=== PATIENT | female | born 1975 | race Caucasian/White ===

== ENCOUNTER → 2024-01-30 13:41 | Outpatient (REF) | payer MEDICARE, OTHER, SELFPAY | LOC: RAD 13:41 | PROVIDERS: ATTENDING PHYSICIAN Physician Assistant Medical | DX: L53.9 Erythematous condition, unspecified (principal) | CPT/HCPCS: 93922; 93925 ==

== ENCOUNTER → 2024-02-02 09:42 | Outpatient (REF) | payer MEDICARE, OTHER, SELFPAY | LOC: WDC 09:42 | PROVIDERS: ATTENDING PHYSICIAN Physician Assistant Medical | DX: N64.4 Mastodynia (principal); N64.52 Nipple discharge | CPT/HCPCS: 76642; 77062; 77066 ==

== ENCOUNTER 2024-06-11 11:42 | Emergency (ER) | payer MEDICARE, OTHER, SELFPAY ==
[2024-06-11 11:54] VITALS: BP 148/77
[2024-06-11 12:11] LABS: % Basophils 1.2 % (0-2); % Eosinophils 3.4 % (0-6); % Immature Granulocytes 0.4 % (0-0.5); % Lymphocytes 32.6 % (20.5-51.1); % Neutrophils 56.4 % (42.2-75.2); Absolute Basophils 0.1 10^3/uL (0-0.2); Absolute Eosinophils 0.3 10^3/uL (0-0.7); Absolute Lymphocytes 2.6 10^3/uL (1.2-3.4); Absolute Monocytes 0.5 10^3/uL (0.1-0.6); Absolute Neutrophils 4.5 10^3/uL (1.4-6.5); Hematocrit 42.6 % (37.0-47.0); Mean Corp Hgb Conc. 35.2 g/dL (33.0-37.0); Mean Corpuscular Hgb 31.4 pg (27.0-31.0); Mean Corpuscular Volume 89.3 fL (81.0-99.0); Mean Platelet Volume 10.8 fL (7.4-10.4); Nucleated Red Blood Cells % 0 %; Platelet Count 313 10^3/uL (130-400); Red Blood Cell Count 4.77 10^6/uL (4.20-5.40)
[2024-06-11 12:33] LABS: ALT (SGPT) 31 U/L (0-35); AST (SGOT) 30 U/L (14-36); Albumin 4.6 g/dl (3.5-5.0); Alkaline Phosphatase 73 U/L (38-126); Blood Urea Nitrogen 15 mg/dl (7-17); Calcium 9.8 mg/dl (8.4-10.2); Carbon Dioxide 27 mmol/L (22-30); Chloride 104 mmol/L (98-107); Glucose 102 mg/dl (70-99); Lipase 93 U/L (23-300); Potassium 4.5 mmol/L (3.5-5.1); Sodium 139 mmol/L (135-145); Total Bilirubin 0.4 mg/dl (0.2-1.3); Total Protein 7.5 g/dl (6.3-8.2); eGFR > 60.00
[2024-06-11 12:41] LABS: Urine Albumin Negative (Neg - Trace); Urine Bilirubin Negative (Negative); Urine Character Clear (Clear); Urine Color Yellow; Urine Glucose Negative (Negative); Urine Ketone Negative (Negative); Urine Leukocyte Negative (Negative); Urine Nitrite Negative (Negative); Urine Occult Blood Negative (Negative); Urine Urobilinogen Negative (Neg - 1+)
[2024-06-11 12:52] VITALS: BMI 39.7
[2024-06-11] MEDS: BENTYL 20 MG IM (13:25)
--- NOTE | 2024-06-11 16:03 | ED.GENMED ---
History of Present Illness
General
Chief Complaint: Abdominal Pain
Source: patient
Exam Limitations: none
Time Seen by Provider: 06/11/24 12:20
Nursing documentation reviewed up to this point in time: agreed with
History of Present Illness
History of Present Illness:
48-year-old female past medical history of asthma, headaches presenting to the emergency department today with concerns of abdominal discomfort worsening over the past few weeks and decreasing bowel movements. Has had multiple abdominal surgeries
in the past. Denies any chest pain shortness of breath vomiting. Denies any fevers.
Past History
Past History
ED Past Medical History: Asthma, Fibromyalgia, GERD and Other (Interstitial cystitis, Sjogren's, Raynaud, lupus)
ED Past Surgical History: Appendectomy, Gynecological (Right oopherectomy, hysterectomy) and Other (Inguinal hernia repair, colonoscopy, bladder biopsy, impacted teeth surgery)
Social History
Tobacco: Non-smoker
Alcohol: None
Personal:
Living: with family
Employment: Not employed
Review of Systems
Review of Systems
Allergies reviewed?: Yes
All Other Systems: ROS reviewed and negative except as documented in HPI and ROS
Phy Exam
Physical Exam
Physical Exam:
GENERAL: Alert , in no apparent distress
EYE: pupils equal and reactive
NECK: Supple, no significant adenopathy.
ENT: o/p clr, mmm.
CARDIAC: Regular rate and rhythm .
LUNGS: Clear breath sounds bilaterally, no acute respiratory distress, no wheezes/rales/rhonchi
ABDOMEN: Vague abdominal tenderness throughout the abdomen. No focal tenderness
NEUROLOGICAL: Alert and oriented, no focal neuro deficits
SKIN: Warm and dry, skin intact.
MUSCULOSKELETAL: No edema, well perfused.
PSYCH: Normal and appropriate interaction.
Course
Orders/Labs/Results
Orders:
Orders
06/11/24 12:00
Complete Blood Count/With Diff Urgent
Comprehensive Metabolic Panel Urgent
Lipase Urgent
Urinalysis Reflex To Culture Urgent
Date Specimen was Collected: 06/11/24
Time Specimen was Collected: 11:57
06/11/24 13:14
CT Abd/Pel (IV only)-DH only Urgent
Comment:
Reason For Exam: right sided abd pain
Dicyclomine HCl [Bentyl] 20 mg IM NOW STA
Abnormal Lab Results
06/11/24
12:00
MCH 31.4 H pg
(27.0-31.0)
MPV 10.8 H fL
(7.4-10.4)
Glucose 102 H mg/dl
(70-99)
06/11/24 12:00
06/11/24 12:00
Vital Signs
Initial and Last Documented VS:
Initial Vital Signs
Temp Pulse Resp BP Pulse Ox
98.0 F 78 16 148/77 98
06/11/24 11:54 06/11/24 11:54 06/11/24 11:54 06/11/24 11:54 06/11/24 11:54
Last Documented Vital Signs
Temp Pulse Resp BP Pulse Ox
98.0 F 78 16 148/77 98
06/11/24 11:54 06/11/24 11:54 06/11/24 11:54 06/11/24 11:54 06/11/24 11:54
MDM/Problems Addressed
MDM/Problems Addressed:
48-year-old female presenting to the emergency department today with concerns of vague diffuse abdominal pain here vital signs are normal vague discomfort to palpation labs unremarkable CT scan showing constipation but no emergent findings. She was
given a bowel regimen but otherwise advised for outpatient follow-up. Return precautions given.
*Critical Care Note
Total Time (30-74mins, 75-104mins- exclusive of procedures): Not Applicable
ED Attending Note
-
Portions of this chart may have been created with voice recognition software.� Occasional wrong word or��sound alike� substitutions may have occurred due to the inherent limitations of voice recognition software.
Discharge Plan
Departure
Patient Disposition: Home (Routine Discharge)
Date of Disposition: 06/11/24
Time of Disposition: 16:03
Patient with high blood pressure during this ER visit?: No
Condition: Good
Covid-19: Not Applicable
Discharge Problem:
Constipation
Instructions: Constipation, Adult (DC)
Prescriptions:
New
magnesium citrate Solution
300 ml PO ONCE Qty: 296 0RF
polyethylene glycol 3350 [Miralax] 17 gram/dose powder
4 g PO DAILY Qty: 119 0RF
docusate sodium [Colace] 100 mg capsule
100 mg PO DAILY Qty: 14 0RF
No Action
fexofenadine [Analia] 60 MG tablet
180 mg PO DAILY
calcium-vitamin D3-vitamin K 1 EACH tablet,chewable
1 ea PO DAILY
naproxen 500 MG tablet
500 mg PO BIDPRN PRN (Reason: pain, take with food) Qty: 20 0RF
famotidine [Pepcid] 40 MG tablet
40 mg PO DAILY Qty: 20 0RF
Referrals:
Tegan Durham MD [Active] - Follow up in 10 days
Issa Call MD [Family Provider] -
Activity Restrictions/Additional Instructions:
You came to the emergency department today with concerns of abdominal discomfort. You had a reassuring assessment here and a CT scan that showed significant constipation. This could be causing your symptoms. Please take the prescribed medications
and follow-up closely with GI. Return to the emergency department for any worsening, new or concerning symptoms.
Interventions
Interventions:
*Risk Screen - Suicide Last Done: 06/11/24 11:54
*Neglect/Abuse Screening Last Done: 06/11/24 11:54
HN-Iflxyi-Hlfxzwdgjp Assessment Last Done: 06/11/24 12:28
Discharge Date and Time
Print Language: TAMAZIGHT
== END 2024-06-11 16:33 | disposition home or self-care (01) ==
LOC: EMR 11:42
PROVIDERS: EMERGENCY PHYSICIAN Emergency Medicine; FAMILY PHYSICIAN Family Medicine
DX: K59.00 Constipation, unspecified (principal); J45.909 Unspecified asthma, uncomplicated
CPT/HCPCS: 99285; 96372; 74177; 80053; 81003; 83690; 85025; Q9967

== ENCOUNTER → 2024-07-13 10:21 | Outpatient (REF) | payer MEDICARE, OTHER, SELFPAY | LOC: RAD 10:21 | PROVIDERS: ATTENDING PHYSICIAN Internal Medicine Gastroenterology; FAMILY PHYSICIAN Family Medicine | DX: T17.308A Unspecified foreign body in larynx causing other injury, initial encounter (principal); K21.9 Gastro-esophageal reflux disease without esophagitis | CPT/HCPCS: 74221 ==

== ENCOUNTER → 2024-08-03 07:59 | Outpatient (REF) | payer MEDICARE, OTHER, SELFPAY | LOC: RAD 07:59 | PROVIDERS: ATTENDING PHYSICIAN Internal Medicine Gastroenterology; FAMILY PHYSICIAN Family Medicine | DX: K21.9 Gastro-esophageal reflux disease without esophagitis (principal); R10.10 Upper abdominal pain, unspecified; R14.0 Abdominal distension (gaseous); T17.308A Unspecified foreign body in larynx causing other injury, initial encounter; K59.00 Constipation, unspecified | CPT/HCPCS: 78264; A9541 ==

== ENCOUNTER → 2024-09-30 08:53 | Outpatient (REF) | payer MEDICARE, OTHER, SELFPAY | LOC: PAVMRI 08:53 | PROVIDERS: ATTENDING PHYSICIAN Physician Assistant; FAMILY PHYSICIAN Family Medicine | DX: M54.12 Radiculopathy, cervical region (principal) | CPT/HCPCS: 72141 ==

== ENCOUNTER → 2024-12-17 11:14 | Outpatient (REF) | payer MEDICARE, SELFPAY | LOC: HWRAD 11:14 | PROVIDERS: ATTENDING PHYSICIAN Physician Assistant Medical | DX: M54.41 Lumbago with sciatica, right side (principal) | CPT/HCPCS: 72110 ==

== ENCOUNTER → 2025-01-13 15:01 | Outpatient (REF) | payer MEDICARE, SELFPAY | LOC: HWRAD 15:01 | PROVIDERS: ATTENDING PHYSICIAN Physician Assistant Medical; FAMILY PHYSICIAN Nurse Practitioner Adult Health | DX: M79.641 Pain in right hand (principal); M25.511 Pain in right shoulder | CPT/HCPCS: 73110; 73130 ==

== ENCOUNTER → 2025-01-22 10:32 | Outpatient (REF) | payer MEDICARE, SELFPAY | LOC: MRI 3T 10:32 | PROVIDERS: ATTENDING PHYSICIAN Physician Assistant Medical | DX: M54.50 Low back pain, unspecified (principal) | CPT/HCPCS: 72148 ==

== ENCOUNTER → 2025-04-11 12:34 | Outpatient (REF) | payer MEDICARE, SELFPAY | LOC: HWRAD 12:34 | PROVIDERS: ATTENDING PHYSICIAN Physician Assistant Medical | DX: J02.9 Acute pharyngitis, unspecified (principal) | CPT/HCPCS: 71046 ==

== ENCOUNTER → 2025-05-12 10:57 | Outpatient (REF) | payer MEDICARE, SELFPAY | LOC: HWRAD 10:57 | PROVIDERS: ATTENDING PHYSICIAN Physician Assistant Medical | DX: J18.9 Pneumonia, unspecified organism (principal) | CPT/HCPCS: 71046 ==

== ENCOUNTER → 2025-05-27 13:44 | Outpatient (REF) | payer MEDICARE, SELFPAY | LOC: HWRAD 13:44 | PROVIDERS: ATTENDING PHYSICIAN Physician Assistant Medical | DX: M79.671 Pain in right foot (principal) | CPT/HCPCS: 73630 ==